=== PATIENT | male | born 1995 | race Caucasian/White ===

== ENCOUNTER 2022-02-03 12:48 | Emergency (ER) | payer OTHER ==
[~2022-02-03] VITALS: Ht 167.6 cm; Wt 59.4 kg
[2022-02-03 13:00] VITALS: BP 131/86
--- NOTE | 2022-02-03 14:13 | NUR ---
ER PA AT BEDSIDE
--- NOTE | 2022-02-03 14:18 | NUR ---
26 Y/O MALE BIB SELF C/O OF THROAT PAIN 7/10 ACHING X2DAYS. STATED THAT HE SAW HIS PCP LAST WEEK FOR THE SAME ISSUE, WAS TAKING AMOXICILLIN X 1 WEEK. STATED NO RELIEF AND THAT AFTER TAKING THE ANTIBIOTIC THE SWELLING INCREASED. PT NOTED TO HAVE COUGHED OUT A SMALL STONE. NOTED SWELLING IN THE NECK UPON PALPATION WITH THE RIGHT SIDE MORE SWOLLEN. PT STATES RECURRING TONSIL INFECTION NKA PMH: DENIES
[2022-02-03] MEDS ORDERED: IBUP-2213 PO (14:30)
[2022-02-03] MEDS ORDERED: AMOX1TAB8 PO (14:30)
--- NOTE | 2022-02-03 14:45 | NUR ---
Patient discharged with v/s stable. Written and verbal after care instructions given and explained. Patient alert, oriented and verbalized understanding of instructions. Ambulatory with steady gait. All questions addressed prior to discharge. ID band removed. Patient advised to follow up with PMD. Rx of AMOXICILLIN/POTASSIUM CLAV given. Patient educated on indication of medication including possible reaction and side effects. Opportunity to ask questions provided and answered.
--- NOTE | 2022-02-03 14:45 | NUR ---
The patient's care was reviewed and supervised by Jenifer Jones RN.
== END 2022-02-03 14:45 | disposition home or self-care (01) ==
LOC: MED 12:48
DX: K11.20 Sialoadenitis, unspecified (principal); K11.5 Sialolithiasis; R03.0 Elevated blood-pressure reading, without diagnosis of hypertension; Z79.899 Other long term (current) drug therapy
CPT/HCPCS: 99283